=== PATIENT | male | born 1995 | race Caucasian/White ===

== ENCOUNTER 2017-05-20 11:17 | Emergency (ER) | payer BC ==
[~2017-05-20] VITALS: Ht 177.8 cm; Wt 83.9 kg
[2017-05-20 11:22] VITALS: Ht 177.8 cm; Wt 83.9 kg
[2017-05-20 12:40] VITALS: BP 126/72
== END 2017-05-20 12:40 | disposition home or self-care (01) ==
LOC: ED 11:17
DX: S61.211A Laceration without foreign body of left index finger without damage to nail, initial encounter (principal); S80.212A Abrasion, left knee, initial encounter; W26.8XXA Contact with other sharp object(s), not elsewhere classified, initial encounter; R56.9 Unspecified convulsions; Y93.89 Activity, other specified; Z88.5 Allergy status to narcotic agent; Y92.89 Other specified places as the place of occurrence of the external cause; Y99.8 Other external cause status
CPT/HCPCS: J2001